=== PATIENT | male | born 1980 | race Caucasian/White ===

== ENCOUNTER 2018-03-20 15:02 | Emergency (ER) | payer SELFPAY ==
[~2018-03-20] VITALS: Ht 175.3 cm; Wt 104.5 kg
[2018-03-20 15:22] VITALS: Ht 175.3 cm; Wt 104.5 kg
[2018-03-20] MEDS ORDERED: COMPAZINE10 MG PO (15:52)
[2018-03-20] MEDS ORDERED: VISTARIL25 MG PO (15:52)
[2018-03-20 16:13] VITALS: BP 125/92
== END 2018-03-20 16:13 | disposition home or self-care (01) ==
LOC: D.ER 15:02
DX: F41.9 Anxiety disorder, unspecified (principal); R51 Headache; R53.1 Weakness; F17.200 Nicotine dependence, unspecified, uncomplicated